=== PATIENT | male | born 2000 | race Caucasian/White ===

== ENCOUNTER 2021-03-04 21:32 | Emergency (ER) | payer SELFPAY ==
--- NOTE | 2021-03-04 23:42 | ER ---
Nurse's Notes [facility] Name: Roderick Henry Age: 20 yrs Sex: Male : 2000 Arrival Date: 03/04/2021 Time: 21:37 Bed External Waiting Private MD: Diagnosis: Presentation: 03/04 22:11 Chief complaint: Patient states: would like a covid swab, reports no symptoms. em Coronavirus screen: Client denies travel out of the [place] in the last 14 days. Ebola Screen: Patient negative for fever greater than or equal to 101.5 degrees Fahrenheit, and additional compatible Ebola Virus Disease symptoms Patient denies exposure to infectious person. Patient denies travel to an Ebola-affected area in the 21 days before illness onset. No symptoms or risks identified at this time. Initial Sepsis Screen: Does the patient meet any 2 criteria? No. Patient's initial sepsis screen is negative. Does the patient have a suspected source of infection? No. Patient's initial sepsis screen is negative. Risk Assessment: Do you want to hurt yourself or someone else? Patient reports no desire to harm self or others. Onset of symptoms was March 04, 2021. 22:11 Method Of Arrival: Ambulatory em 22:11 Acuity: BRANDYN 5 em Historical: - Allergies: 22:12 No Known Allergies; em - PMHx: 22:12 None; em - PSHx: 22:12 None; em - Immunization history:: Adult Immunizations up to date. - Social history:: Smoking status: Patient denies any tobacco usage or history of. Vital Signs: 22:11 BP 167 / 86; Pulse 97; Resp 18; Temp 97.5; Pulse Ox 99% on R/A; em ED Course: 21:37 Patient arrived in ED. ag3 22:12 Triage completed. em 22:12 Arm band placed on. em Administered Medications: No medications were administered Outcome: 23:41 Patient left the ED. em Signatures: Massimo Sullivan, RN RN em Nisha Howell 3
[2021-03-05 00:36] VITALS: BP 167/86; TEMP 97.5; O2SAT 99
== END 2021-03-04 23:41 | disposition left against medical advice (07) ==
LOC: ER 21:32
DX: Z53.21 Procedure and treatment not carried out due to patient leaving prior to being seen by health care provider (principal)
CPT/HCPCS: 99281